=== PATIENT | male | born 1945 | race Caucasian/White ===

== ENCOUNTER 2018-05-15 18:10 | Emergency (ER) | payer MEDICARE, OTHER ==
[~2018-05-15] VITALS: Ht 152.4 cm; Wt 81.8 kg
[2018-05-15] MEDS ORDERED: ALPRAZolam 0.25mg tablet PO ONE (19:20)
--- NOTE | 2018-05-15 19:23 | NUR ---
I was able to eventually get him to settle down
--- NOTE | 2018-05-15 19:41 | NUR ---
PATIENT STATES THAT "HE KNOWS MORE ABOUT MEDICAL THAN ME OR ANY DOCTOR AND HE KNOWS MORE PEOPLE IN [place] THAN ANYBODY"
--- NOTE | 2018-05-15 19:43 | NUR ---
UNABLE TO ASSESS PATIENT DUE TO HIS AGITATION
[2018-05-15 20:36] VITALS: BP 160/87
== END 2018-05-15 20:41 | disposition home or self-care (01) ==
LOC: ER 18:12
DX: F41.0 Panic disorder [episodic paroxysmal anxiety] (principal); F03.90 Unspecified dementia, unspecified severity, without behavioral disturbance, psychotic disturbance, mood disturbance, and anxiety
CPT/HCPCS: 70450; 99284